=== PATIENT | male | born 1970 | race African-American/Black ===

== ENCOUNTER 2020-05-10 10:45 | Inpatient (IN) | payer OTHER ==
[~2020-05-10] VITALS: Ht 190.5 cm; Wt 130.7 kg
[2020-05-10 11:54] LABS: CALCIUM 8.6 mg/dL (8.5-10.1); CARBON DIOXIDE 26.2 mmol/L (21-32); CHLORIDE SERUM 102 mmol/L (98-107); CREATININE SERUM 1.2 mg/dL (0.7-1.3); GFR1 > 60 mL/min; GLUCOSE SERUM 109 mg/dL (74-106); POTASSIUM SERUM 4.5 mmol/L (3.5-5.1); SODIUM SERUM 138 mmol/L (136-145)
[2020-05-10 11:58] LABS: ALKALINE PHOSPHATASE 69 U/L (46-116); ALT/SGPT 37 U/L (16-63); AST/SGOT 32 U/L (15-37); BILIRUBIN TOTAL 0.45 mg/dL (0.20-1.00); C REACTIVE PROTEIN 9.4 mg/dL (<=0.9); LACTIC DEHYDROGENASE (LDH) 367 U/L (100-190); TOTAL PROTEIN, SERUM 8.2 g/dL (6.4-8.2)
[2020-05-10 12:15] LABS: ALBUMIN 3.1 g/dL (3.4-5.0)
[2020-05-10 12:17] LABS: BASOPHIL % 0.4 % (0-2); PLATELET COUNT 173 x10^3mcL (130-400); RED CELL DISTRIBUTION WIDTH 13.9 % (11.5-14.5)
[2020-05-10 13:34] LABS: microscopic required? YES; urine erythrocyte 1+ (NEGATIVE)
[2020-05-10] MEDS ORDERED: FLUCONAZOLE200 M2 PO (14:15)
[2020-05-10 15:34] VITALS: BP 126/77
[2020-05-10 19:22] VITALS: BP 143/90
[2020-05-10 23:22] VITALS: Ht 190.5 cm; Wt 130.7 kg
[2020-05-11 05:18] VITALS: BP 139/76
[2020-05-11 07:22] LABS: BASOPHIL % 0.3 % (0-2); PLATELET COUNT 182 x10^3mcL (130-400); RED CELL DISTRIBUTION WIDTH 13.7 % (11.5-14.5)
[2020-05-11 07:23] LABS: CALCIUM 8.4 mg/dL (8.5-10.1); CHLORIDE SERUM 104 mmol/L (98-107); CREATININE SERUM 1.1 mg/dL (0.7-1.3); GFR1 > 60 mL/min; GLUCOSE SERUM 101 mg/dL (74-106); POTASSIUM SERUM 4.2 mmol/L (3.5-5.1); SODIUM SERUM 138 mmol/L (136-145)
[2020-05-11 08:46] VITALS: BP 125/80
[2020-05-11 12:29] VITALS: BP 114/75
[2020-05-11 16:16] VITALS: BP 133/89
[2020-05-11 19:24] VITALS: BP 127/81; BP 147/68
[2020-05-12 04:25] VITALS: BP 136/88
[2020-05-12 09:26] VITALS: BP 135/81
[2020-05-12 11:58] VITALS: BP 124/74
[2020-05-12 16:25] VITALS: BP 126/84
[2020-05-12 20:09] VITALS: BP 140/92
[2020-05-13 05:33] VITALS: BP 124/85
[2020-05-13 08:00] VITALS: BP 130/83
[2020-05-13 08:18] LABS: BASOPHIL % 0.1 % (0-2); PLATELET COUNT 320 x10^3mcL (130-400); RED CELL DISTRIBUTION WIDTH 13.6 % (11.5-14.5)
[2020-05-13 09:36] LABS: CHLORIDE SERUM 107 mmol/L (98-107); GFR1 > 60 mL/min; GLUCOSE SERUM 123 mg/dL (74-106); POTASSIUM SERUM 3.7 mmol/L (3.5-5.1); SODIUM SERUM 142 mmol/L (136-145)
[2020-05-13 12:30] VITALS: BP 126/73
[2020-05-13 18:00] VITALS: BP 128/73
[2020-05-13 20:30] VITALS: BP 133/85
[2020-05-14 05:28] VITALS: BP 120/72
[2020-05-14 07:00] LABS: PLATELET COUNT 306 x10^3mcL (130-400); RED CELL DISTRIBUTION WIDTH 13.5 % (11.5-14.5)
[2020-05-14 07:19] LABS: CALCIUM 8.5 mg/dL (8.5-10.1); CARBON DIOXIDE 26.2 mmol/L (21-32); CHLORIDE SERUM 108 mmol/L (98-107); CREATININE SERUM 1.1 mg/dL (0.7-1.3); GFR1 > 60 mL/min; GLUCOSE SERUM 118 mg/dL (74-106); POTASSIUM SERUM 3.8 mmol/L (3.5-5.1); SODIUM SERUM 142 mmol/L (136-145)
[2020-05-14 07:29] LABS: BASOPHIL % 3.9 % (0-2)
[2020-05-14 08:35] VITALS: BP 120/73
[2020-05-14 12:54] VITALS: BP 129/72
[2020-05-14 16:04] VITALS: BP 115/67
[2020-05-14 20:35] VITALS: BP 111/53
[2020-05-15 05:05] VITALS: BP 134/64
[2020-05-15 06:38] LABS: BASOPHIL % 0.1 % (0-2); PLATELET COUNT 339 x10^3mcL (130-400); RED CELL DISTRIBUTION WIDTH 13.9 % (11.5-14.5)
[2020-05-15 06:41] LABS: CALCIUM 8.4 mg/dL (8.5-10.1); CARBON DIOXIDE 26.1 mmol/L (21-32); CHLORIDE SERUM 108 mmol/L (98-107); GFR1 > 60 mL/min; GLUCOSE SERUM 104 mg/dL (74-106); POTASSIUM SERUM 3.9 mmol/L (3.5-5.1); SODIUM SERUM 142 mmol/L (136-145)
[2020-05-15 08:05] VITALS: BP 110/62
[2020-05-15 12:17] VITALS: BP 109/71
[2020-05-15 16:04] VITALS: BP 127/88
[2020-05-15 20:22] VITALS: BP 118/68
[2020-05-16 05:57] VITALS: BP 122/74
[2020-05-16 07:08] LABS: BASOPHIL % 0.3 % (0-2); PLATELET COUNT 355 x10^3mcL (130-400); RED CELL DISTRIBUTION WIDTH 14.3 % (11.5-14.5)
[2020-05-16 07:14] LABS: CALCIUM 8.8 mg/dL (8.5-10.1); CARBON DIOXIDE 26.5 mmol/L (21-32); CHLORIDE SERUM 107 mmol/L (98-107); CREATININE SERUM 1.1 mg/dL (0.7-1.3); GFR1 > 60 mL/min; GLUCOSE SERUM 91 mg/dL (74-106); POTASSIUM SERUM 4.2 mmol/L (3.5-5.1); SODIUM SERUM 141 mmol/L (136-145)
[2020-05-16 07:58] VITALS: BP 139/83
[2020-05-16 12:00] VITALS: BP 114/69
[2020-05-16 17:17] VITALS: BP 123/74
[2020-05-16 20:01] VITALS: BP 113/72
[2020-05-17 05:25] VITALS: BP 113/80
[2020-05-17 08:35] VITALS: BP 100/62
[2020-05-17 12:43] VITALS: BP 105/65
[2020-05-17 17:23] VITALS: BP 106/52
[2020-05-17 21:29] VITALS: BP 153/86
[2020-05-18 05:33] VITALS: BP 103/55
[2020-05-18 08:27] LABS: BASOPHIL % 0.2 % (0-2); CALCIUM 8.7 mg/dL (8.5-10.1); CARBON DIOXIDE 25.9 mmol/L (21-32); CHLORIDE SERUM 103 mmol/L (98-107); CREATININE SERUM 1.1 mg/dL (0.7-1.3); GFR1 > 60 mL/min; GLUCOSE SERUM 90 mg/dL (74-106); PLATELET COUNT 340 x10^3mcL (130-400); RED CELL DISTRIBUTION WIDTH 13.9 % (11.5-14.5); SODIUM SERUM 137 mmol/L (136-145)
[2020-05-18 09:06] VITALS: BP 97/68
[2020-05-18 12:39] VITALS: BP 95/62
[2020-05-18 17:15] VITALS: BP 110/49
[2020-05-18 20:35] VITALS: BP 130/76
[2020-05-19 05:10] VITALS: BP 112/59
[2020-05-19 09:35] VITALS: BP 125/84
[2020-05-19 12:27] VITALS: BP 111/68
== END 2020-05-19 19:38 | disposition other institution (70) | DRG 871 ==
LOC: ED 10:45 → DU 13:20
PROVIDERS: Emergency Medicine; ADMIT Internal Medicine; ATTEND Internal Medicine
DX: A41.9 Sepsis, unspecified organism (principal); U07.1 COVID-19; J12.89 Other viral pneumonia; J96.91 Respiratory failure, unspecified with hypoxia; M62.82 Rhabdomyolysis; J45.909 Unspecified asthma, uncomplicated; Z88.5 Allergy status to narcotic agent; Z88.8 Allergy status to other drugs, medicaments and biological substances; Z79.899 Other long term (current) drug therapy; Z79.891 Long term (current) use of opiate analgesic
CPT/HCPCS: 36600; 83880; 85378; 87804; G0378; J0456; J0696; J1650; J2270; J2550; J7030; J7050; J7060; J8540; Q0092; Q0162; U0003-CS